=== PATIENT | female | born 1955 | race Caucasian/White ===

== ENCOUNTER → 2023-05-14 09:16 | Outpatient (REF) | payer MEDICARE, OTHER, SELFPAY ==
[2023-05-14 10:00] LABS: % Basophils 0.6 % (0-2); % Eosinophils 3.1 % (0-6); % Immature Granulocytes 0.4 % (0-0.5); % Lymphocytes 19.5 % (20.5-51.1); % Monocytes 8.9 % (1.7-9.3); % Neutrophils 67.5 % (42.2-75.2); Absolute Eosinophils 0.2 10^3/uL (0-0.7); Absolute Lymphocytes 1.3 10^3/uL (1.2-3.4); Absolute Monocytes 0.6 10^3/uL (0.1-0.6); Absolute Neutrophils 4.6 10^3/uL (1.4-6.5); Hematocrit 32.3 % (37.0-47.0); Hemoglobin 10.9 g/dL (12.0-16.0); Mean Corp Hgb Conc. 33.7 g/dL (33.0-37.0); Mean Corpuscular Hgb 29.9 pg (27.0-31.0); Mean Corpuscular Volume 88.7 fL (81.0-99.0); Mean Platelet Volume 9.9 fL (7.4-10.4); Nucleated Red Blood Cells % 0 %; Platelet Count 281 10^3/uL (130-400); Red Blood Cell Count 3.64 10^6/uL (4.20-5.40); Red Cell Dist. Width 14.1 % (11.5-14.5); White Blood Cell Count 6.8 10^3/uL (4.8-10.8)
[2023-05-14 10:22] LABS: NT-proBNP 377 pg/ml; Troponin I < 0.012 ng/ml
[2023-05-14 10:42] LABS: Protein/creatinine Ratio 3.8; Urine Protein 113 mg/dl
[2023-05-14 11:13] LABS: ALT (SGPT) 22 U/L (0-35); AST (SGOT) 22 U/L (14-36); Albumin 4.6 g/dl (3.5-5.0); Alkaline Phosphatase 110 U/L (38-126); Blood Urea Nitrogen 24 mg/dl (7-17); Calcium 9.5 mg/dl (8.4-10.2); Carbon Dioxide 23 mmol/L (22-30); Chloride 105 mmol/L (98-107); Glucose 145 mg/dl (70-99); Potassium 4.2 mmol/L (3.5-5.1); Sodium 137 mmol/L (135-145); Total Bilirubin 0.8 mg/dl (0.2-1.3); Total Protein 6.7 g/dl (6.3-8.2); eGFR > 60.00
[2023-05-18 05:42] LABS: Albumin 4.18 g/dL (3.75-5.01); Alpha 1 Globulin 0.28 g/dL (0.19-0.46); Alpha 2 Globulin 0.96 g/dL (0.48-1.05); Free Kappa Light Chains,Quant 16.61 mg/L (3.30-19.40); Free Lambda Light Chains,Quant 15.45 mg/L (5.71-26.30); IgA 61 mg/dL (68-408); IgG 477 mg/dL (768-1632); IgM 27 mg/dL (35-263); Immunofixation Electrophoresis IFE Done; Kappa/Lambda Fr Light Ratio 1.08 (0.26-1.65); Total Protein-Electrophoresis 6.6 g/dL (6.3-8.2)
== END ==
LOC: REG 09:16
PROVIDERS: ATTENDING PHYSICIAN Internal Medicine Hematology & Oncology
DX: E85.81 Light chain (AL) amyloidosis (principal)
CPT/HCPCS: 36415; 80053; 82570; 82784; 83521; 83880; 84155; 84156; 84165; 84484; 85025; 86334

== ENCOUNTER → 2023-06-26 10:11 | Outpatient (REF) | payer MEDICARE, OTHER, SELFPAY ==
[2023-06-26 11:34] LABS: Blood Urea Nitrogen 25 mg/dl (7-17); Calcium 10.1 mg/dl (8.4-10.2); Carbon Dioxide 27 mmol/L (22-30); Chloride 99 mmol/L (98-107); Glucose 164 mg/dl (70-99); HDL Cholesterol 57 mg/dl; LDL Cholesterol, Calculated 126 mg/dl; Potassium 4.6 mmol/L (3.5-5.1); Sodium 136 mmol/L (135-145); Total Cholesterol 231 mg/dl (50-199); Triglyceride 243 mg/dl (10-149); Very Low Density Lipoprotein 48 mg/dl (0-30); eGFR 55.07
[2023-06-26 12:43] LABS: Glycohemoglobin (HgbA1c) 7.3 % (4.0-5.6)
== END ==
LOC: REG 10:11
PROVIDERS: ATTENDING PHYSICIAN Internal Medicine Cardiovascular Disease; FAMILY PHYSICIAN Family Medicine
DX: E78.01 Familial hypercholesterolemia (principal); E11.9 Type 2 diabetes mellitus without complications
CPT/HCPCS: 36415; 80048; 80061; 83036

== ENCOUNTER → 2023-08-20 09:27 | Outpatient (REF) | payer MEDICARE, OTHER, SELFPAY ==
[2023-08-20 10:30] LABS: % Basophils 0.3 % (0-2); % Eosinophils 2.8 % (0-6); % Immature Granulocytes 0.3 % (0-0.5); % Lymphocytes 16.6 % (20.5-51.1); % Monocytes 7.4 % (1.7-9.3); % Neutrophils 72.6 % (42.2-75.2); Absolute Eosinophils 0.3 10^3/uL (0-0.7); Absolute Lymphocytes 1.5 10^3/uL (1.2-3.4); Absolute Monocytes 0.7 10^3/uL (0.1-0.6); Absolute Neutrophils 6.5 10^3/uL (1.4-6.5); Hematocrit 34.5 % (37.0-47.0); Hemoglobin 11.2 g/dL (12.0-16.0); Mean Corp Hgb Conc. 32.5 g/dL (33.0-37.0); Mean Corpuscular Hgb 29.4 pg (27.0-31.0); Mean Corpuscular Volume 90.6 fL (81.0-99.0); Mean Platelet Volume 10.3 fL (7.4-10.4); Nucleated Red Blood Cells % 0 %; Platelet Count 297 10^3/uL (130-400); Red Blood Cell Count 3.81 10^6/uL (4.20-5.40); Red Cell Dist. Width 13.4 % (11.5-14.5)
[2023-08-20 10:50] LABS: NT-proBNP 297 pg/ml; Troponin I < 0.012 ng/ml
[2023-08-20 11:16] LABS: ALT (SGPT) 18 U/L (0-35); AST (SGOT) 20 U/L (14-36); Albumin 4.2 g/dl (3.5-5.0); Alkaline Phosphatase 112 U/L (38-126); Blood Urea Nitrogen 25 mg/dl (7-17); Calcium 9.5 mg/dl (8.4-10.2); Carbon Dioxide 25 mmol/L (22-30); Chloride 101 mmol/L (98-107); Glucose 142 mg/dl (70-99); Potassium 4.4 mmol/L (3.5-5.1); Sodium 137 mmol/L (135-145); Total Bilirubin 0.6 mg/dl (0.2-1.3); Total Protein 6.6 g/dl (6.3-8.2); eGFR 49.61
[2023-08-20 11:18] LABS: Protein/creatinine Ratio 4.3; Urine Protein 167 mg/dl
[2023-08-22 12:51] LABS: 24 Hour Urine Total Volume Random mL; Urine Collection Length Random hr; Urine Free Lambda Light Chains 4.54 mg/L (0.00-3.79)
[2023-08-22 23:45] LABS: Albumin 3.91 g/dL (3.75-5.01); Alpha 2 Globulin 0.94 g/dL (0.48-1.05); Free Kappa Light Chains,Quant 14.04 mg/L (3.30-19.40); Free Lambda Light Chains,Quant 15.73 mg/L (5.71-26.30); IgA 72 mg/dL (68-408); IgG 531 mg/dL (768-1632); IgM 30 mg/dL (35-263); Immunofixation Electrophoresis IFE Done; Kappa/Lambda Fr Light Ratio 0.89 (0.26-1.65); Total Protein-Electrophoresis 6.3 g/dL (6.3-8.2)
== END ==
LOC: REG 09:27
PROVIDERS: ATTENDING PHYSICIAN Internal Medicine Hematology & Oncology; FAMILY PHYSICIAN Family Medicine
DX: E85.81 Light chain (AL) amyloidosis (principal)
CPT/HCPCS: 36415; 80053; 82570; 82784; 83521; 83880; 84155; 84156; 84165; 84484; 85025; 86334; 86335

== ENCOUNTER → 2023-09-11 10:07 | Outpatient (REF) | payer MEDICARE, OTHER, SELFPAY | LOC: RCS 10:07 | PROVIDERS: ATTENDING PHYSICIAN Internal Medicine Cardiovascular Disease; FAMILY PHYSICIAN Family Medicine | DX: R06.09 Other forms of dyspnea (principal) | CPT/HCPCS: 93306; 93356 ==

== ENCOUNTER → 2023-09-23 09:34 | Outpatient (REF) | payer MEDICARE, OTHER, SELFPAY ==
[2023-09-23 11:16] LABS: Blood Urea Nitrogen 40 mg/dl (7-17); Calcium 9.9 mg/dl (8.4-10.2); Carbon Dioxide 23 mmol/L (22-30); Chloride 106 mmol/L (98-107); Glucose 138 mg/dl (70-99); Potassium 4.9 mmol/L (3.5-5.1); Sodium 139 mmol/L (135-145); eGFR 49.31
== END ==
LOC: REG 09:34
PROVIDERS: ATTENDING PHYSICIAN Specialist; FAMILY PHYSICIAN Family Medicine
DX: I10 Essential (primary) hypertension (principal); R80.1 Persistent proteinuria, unspecified; E78.00 Pure hypercholesterolemia, unspecified; E78.2 Mixed hyperlipidemia
CPT/HCPCS: 36415; 80048

== ENCOUNTER → 2023-11-16 08:07 | Outpatient (REF) | payer MEDICARE, OTHER, SELFPAY ==
[2023-11-16 09:42] LABS: % Basophils 0.5 % (0-2); % Eosinophils 3.1 % (0-6); % Immature Granulocytes 0.4 % (0-0.5); % Lymphocytes 15.6 % (20.5-51.1); % Monocytes 9.1 % (1.7-9.3); % Neutrophils 71.3 % (42.2-75.2); Absolute Eosinophils 0.3 10^3/uL (0-0.7); Absolute Lymphocytes 1.3 10^3/uL (1.2-3.4); Absolute Monocytes 0.7 10^3/uL (0.1-0.6); Absolute Neutrophils 5.8 10^3/uL (1.4-6.5); Hemoglobin 11.2 g/dL (12.0-16.0); Mean Corp Hgb Conc. 33.9 g/dL (33.0-37.0); Mean Corpuscular Hgb 30.2 pg (27.0-31.0); Mean Corpuscular Volume 88.9 fL (81.0-99.0); Mean Platelet Volume 9.8 fL (7.4-10.4); Nucleated Red Blood Cells % 0 %; Platelet Count 261 10^3/uL (130-400); Red Blood Cell Count 3.71 10^6/uL (4.20-5.40); Red Cell Dist. Width 14.4 % (11.5-14.5); White Blood Cell Count 8.2 10^3/uL (4.8-10.8)
[2023-11-16 10:06] LABS: NT-proBNP 330 pg/ml; Troponin I < 0.012 ng/ml
[2023-11-16 10:18] LABS: ALT (SGPT) 18 U/L (0-35); AST (SGOT) 19 U/L (14-36); Albumin 4.4 g/dl (3.5-5.0); Alkaline Phosphatase 98 U/L (38-126); Blood Urea Nitrogen 21 mg/dl (7-17); Calcium 9.9 mg/dl (8.4-10.2); Carbon Dioxide 26 mmol/L (22-30); Chloride 99 mmol/L (98-107); Glucose 141 mg/dl (70-99); Potassium 4.9 mmol/L (3.5-5.1); Sodium 137 mmol/L (135-145); Total Protein 6.5 g/dl (6.3-8.2); eGFR 49.31
[2023-11-16 10:31] LABS: Protein/creatinine Ratio 2.7; Urine Protein 43 mg/dl
[2023-11-18 11:24] LABS: 24 Hour Urine Total Volume Random mL; Urine Collection Length Random hr; Urine Free Kappa Light Chains 3.05 mg/L (0.00-32.90)
[2023-11-18 14:27] LABS: Albumin 4.15 g/dL (3.75-5.01); Alpha 1 Globulin 0.29 g/dL (0.19-0.46); Alpha 2 Globulin 0.92 g/dL (0.48-1.05); Free Kappa Light Chains,Quant 15.39 mg/L (3.30-19.40); Free Lambda Light Chains,Quant 16.38 mg/L (5.71-26.30); IgA 72 mg/dL (68-408); IgG 499 mg/dL (768-1632); IgM 38 mg/dL (35-263); Immunofixation Electrophoresis IFE Done; Kappa/Lambda Fr Light Ratio 0.94 (0.26-1.65); Total Protein-Electrophoresis 6.5 g/dL (6.3-8.2)
== END ==
LOC: REG 08:07
PROVIDERS: ATTENDING PHYSICIAN Internal Medicine Hematology & Oncology; FAMILY PHYSICIAN Family Medicine
DX: E85.81 Light chain (AL) amyloidosis (principal)
CPT/HCPCS: 36415; 80053; 82570; 82784; 83521; 83880; 84155; 84156; 84165; 84484; 85025; 86334; 86335

== ENCOUNTER → 2023-12-25 11:34 | Outpatient (REF) | payer MEDICARE, OTHER, SELFPAY | LOC: HWRAD 11:34 | PROVIDERS: ATTENDING PHYSICIAN Nurse Practitioner Family | DX: M25.562 Pain in left knee (principal) | CPT/HCPCS: 73564 ==

== ENCOUNTER → 2024-02-08 09:09 | Outpatient (REF) | payer MEDICARE, OTHER, SELFPAY ==
[2024-02-08 10:15] LABS: % Basophils 0.4 % (0-2); % Eosinophils 2.3 % (0-6); % Immature Granulocytes 0.3 % (0-0.5); % Lymphocytes 17.3 % (20.5-51.1); % Monocytes 8.8 % (1.7-9.3); % Neutrophils 70.9 % (42.2-75.2); Absolute Eosinophils 0.2 10^3/uL (0-0.7); Absolute Lymphocytes 1.3 10^3/uL (1.2-3.4); Absolute Monocytes 0.7 10^3/uL (0.1-0.6); Absolute Neutrophils 5.2 10^3/uL (1.4-6.5); Hematocrit 32.7 % (37.0-47.0); Mean Corp Hgb Conc. 33.6 g/dL (33.0-37.0); Mean Corpuscular Hgb 30.6 pg (27.0-31.0); Mean Corpuscular Volume 91.1 fL (81.0-99.0); Nucleated Red Blood Cells % 0 %; Platelet Count 277 10^3/uL (130-400); Red Blood Cell Count 3.59 10^6/uL (4.20-5.40); Red Cell Dist. Width 13.6 % (11.5-14.5); White Blood Cell Count 7.4 10^3/uL (4.8-10.8)
[2024-02-08 10:54] LABS: NT-proBNP 364 pg/ml
[2024-02-08 11:13] LABS: Troponin I < 0.012 ng/ml
[2024-02-08 11:34] LABS: ALT (SGPT) 18 U/L (0-35); AST (SGOT) 20 U/L (14-36); Albumin 4.3 g/dl (3.5-5.0); Alkaline Phosphatase 109 U/L (38-126); Blood Urea Nitrogen 19 mg/dl (7-17); Calcium 9.7 mg/dl (8.4-10.2); Carbon Dioxide 27 mmol/L (22-30); Chloride 101 mmol/L (98-107); Glucose 144 mg/dl (70-99); HDL Cholesterol 56 mg/dl; LDL Cholesterol, Calculated 154 mg/dl; Sodium 141 mmol/L (135-145); Total Bilirubin 0.7 mg/dl (0.2-1.3); Total Cholesterol 242 mg/dl (50-199); Total Protein 6.6 g/dl (6.3-8.2); Triglyceride 162 mg/dl (10-149); Very Low Density Lipoprotein 32 mg/dl (0-30); eGFR 54.73
[2024-02-08 15:36] LABS: Protein/creatinine Ratio 3.4; Urine Protein 73 mg/dl
[2024-02-10 13:34] LABS: Albumin 4.09 g/dL (3.75-5.01); Alpha 1 Globulin 0.29 g/dL (0.19-0.46); Alpha 2 Globulin 0.86 g/dL (0.48-1.05); Free Kappa Light Chains,Quant 16.83 mg/L (3.30-19.40); Free Lambda Light Chains,Quant 14.88 mg/L (5.71-26.30); IgA 96 mg/dL (68-408); IgG 501 mg/dL (768-1632); IgM 39 mg/dL (35-263); Immunofixation Electrophoresis IFE Done; Kappa/Lambda Fr Light Ratio 1.13 (0.26-1.65); Total Protein-Electrophoresis 6.4 g/dL (6.3-8.2)
[2024-02-10 15:20] LABS: 24 Hour Urine Total Volume Random mL; Urine Collection Length Random hr; Urine Free Kappa Light Chains 6.23 mg/L (0.00-32.90); Urine Free Lambda Light Chains 1.83 mg/L (0.00-3.79)
== END ==
LOC: REG 09:09
PROVIDERS: ATTENDING PHYSICIAN Internal Medicine Cardiovascular Disease; FAMILY PHYSICIAN Family Medicine; REFERRING PHYSICIAN Internal Medicine Hematology & Oncology
DX: E85.81 Light chain (AL) amyloidosis (principal); E78.01 Familial hypercholesterolemia
CPT/HCPCS: 36415; 80053; 80061; 82570; 82784; 83521; 83880; 84155; 84156; 84165; 84484; 85025; 86334; 86335

== ENCOUNTER → 2024-04-11 09:27 | Outpatient (REF) | payer MEDICARE, OTHER, SELFPAY | LOC: RAD 09:27 | PROVIDERS: ATTENDING PHYSICIAN Internal Medicine Endocrinology, Diabetes & Metabolism | DX: E04.2 Nontoxic multinodular goiter (principal) | CPT/HCPCS: 76536 ==

== ENCOUNTER → 2024-04-22 09:21 | Outpatient (REF) | payer MEDICARE, OTHER, SELFPAY ==
[2024-04-22 10:33] LABS: Glycohemoglobin (HgbA1c) 6.8 % (4.0-5.6)
[2024-04-22 10:34] LABS: Blood Urea Nitrogen 25 mg/dl (7-17); Carbon Dioxide 29 mmol/L (22-30); Chloride 103 mmol/L (98-107); Glucose 141 mg/dl (70-99); Potassium 4.4 mmol/L (3.5-5.1); Sodium 142 mmol/L (135-145); eGFR 49.31
== END ==
LOC: REG 09:21
PROVIDERS: ATTENDING PHYSICIAN Family Medicine
DX: E11.9 Type 2 diabetes mellitus without complications (principal)
CPT/HCPCS: 36415; 80048; 83036

== ENCOUNTER 2024-05-04 16:31 | Observation (INO) | payer MEDICARE, OTHER, SELFPAY ==
[2024-05-04] VITALS (14 sets, daily range): BP systolic 118–143; BP diastolic 64–79; PULSE 80–94; BMI 28.7; BMI 28.8
[2024-05-04 11:32] LABS: % Basophils 0.4 % (0-2); % Eosinophils 0.4 % (0-6); % Immature Granulocytes 0.4 % (0-0.5); % Lymphocytes 13.3 % (20.5-51.1); % Monocytes 13.7 % (1.7-9.3); % Neutrophils 71.8 % (42.2-75.2); Absolute Lymphocytes 0.3 10^3/uL (1.2-3.4); Absolute Monocytes 0.4 10^3/uL (0.1-0.6); Absolute Neutrophils 1.8 10^3/uL (1.4-6.5); Hematocrit 33.1 % (37.0-47.0); Hemoglobin 11.1 g/dL (12.0-16.0); Mean Corp Hgb Conc. 33.5 g/dL (33.0-37.0); Mean Corpuscular Hgb 29.1 pg (27.0-31.0); Mean Corpuscular Volume 86.9 fL (81.0-99.0); Mean Platelet Volume 10.2 fL (7.4-10.4); Nucleated Red Blood Cells % 0 %; Platelet Count 195 10^3/uL (130-400); Red Blood Cell Count 3.81 10^6/uL (4.20-5.40); Red Cell Dist. Width 14.1 % (11.5-14.5); White Blood Cell Count 2.6 10^3/uL (4.8-10.8)
[2024-05-04 11:48] LABS: ALT (SGPT) 22 U/L (0-35); AST (SGOT) 31 U/L (14-36); Albumin 3.6 g/dl (3.5-5.0); Alkaline Phosphatase 86 U/L (38-126); Blood Urea Nitrogen 27 mg/dl (7-17); COVID-19 Antigen Negative (Negative); Calcium 8.1 mg/dl (8.4-10.2); Carbon Dioxide 23 mmol/L (22-30); Chloride 97 mmol/L (98-107); Glucose 195 mg/dl (70-99); Potassium 3.9 mmol/L (3.5-5.1); Sodium 129 mmol/L (135-145); Total Bilirubin 0.4 mg/dl (0.2-1.3); eGFR 40.98
[2024-05-04] MEDS: NSS 1000 IV (12:22)
--- NOTE | 2024-05-04 12:45 | ED.GENMED ---
History of Present Illness
General
Chief Complaint: Fainting/Passed Out
Time Seen by Provider: 05/04/24 11:40
History of Present Illness
History of Present Illness:
68-year-old female with history of diabetes and hypertension presenting to the emergency department after a syncopal episode. Patient reports this morning she got up from her couch to go to the bathroom. She felt that the room looked funny and
subsequently fell back onto the couch and passed out, with the bedside there with her. Notes that she was out for a few minutes. In the past few days, she has been having a cough and congestion, as well as diarrhea. She started taking
amoxicillin, thought that she may have pneumonia. Denies fever. Denies chest pain. Denies significant difficulty breathing. Does note fatigue and generalized weakness. Denies known sick contacts. Does report 1 history of syncopal episode in
the past. Denies additional acute medical complaints.
Past History
Past History
ED Past Medical History: HTN, Hypercholesterolemia, NIDDM and Other (Arthritis)
ED Past Surgical History: Appendectomy, Gynecological, Orthopedic and Tonsilectomy
Social History
Tobacco: Non-smoker
Personal:
Living: with family
Phy Exam
Physical Exam
Physical Exam:
General: Well-appearing, no clinical signs of dehydration, nontoxic and in no acute distress
HEENT: protecting airway
Neck: appears supple
CV: Normal heart rate, regular rhythm
Resp: No accessory muscle use, no increased work of breathing, lungs clear to auscultation bilaterally
Abd: Soft and non-distended, no tenderness to palpation
Extremities: No deformities, no swelling
Neuro: alert, no focal neurologic deficit
: deferred
Rectal: deferred
Psych: Normal affect
Skin: Intact
Course
Orders/Labs/Results
Orders:
Orders
05/04/24 11:05
ECG [Electrocardiogram (*1)] Urgent
Reason for Study: Syncope
EKG- Treatment ONCE
05/04/24 11:18
COVID-19 Antigen Urgent
Source: Nasal Swab
Complete Blood Count/With Diff Urgent
Comprehensive Metabolic Panel Urgent
Influenza A+B Rapid Molecular Urgent
SINDHU Source: Nasal Swab
Specimen Description:
05/04/24 12:16
Orthostatic VS- Treatment ONCE
0.9% Sodium Chloride 1000 ml [Nss] 1,000 ml IV BOLUS
05/04/24 12:17
CR Chest - 2 Views Urgent
Comment:
Reason For Exam: cough, flu
Abnormal Lab Results
05/04/24
11:18
WBC 2.6 L 10^3/uL
(4.8-10.8)
RBC 3.81 L 10^6/uL
(4.20-5.40)
Hgb 11.1 L g/dL
(12.0-16.0)
Hct 33.1 L %
(37.0-47.0)
Absolute Lymphs (auto) 0.3 L 10^3/uL
(1.2-3.4)
Lymphocytes % 13.3 L %
(20.5-51.1)
Monocytes % 13.7 H %
(1.7-9.3)
Sodium 129 L mmol/L
(135-145)
Chloride 97 L mmol/L
(98-107)
BUN 27 H mg/dl
(7-17)
Creatinine 1.4 H mg/dL
(0.6-1.0)
Glucose 195 H mg/dl
(70-99)
Calcium 8.1 L mg/dl
(8.4-10.2)
Total Protein 6.0 L g/dl
(6.3-8.2)
05/04/24 11:18
05/04/24 11:18
Vital Signs
Initial and Last Documented VS:
Initial Vital Signs
Temp Pulse Resp BP Pulse Ox
99.7 F 94 20 140/72 99
05/04/24 11:08 05/04/24 11:08 05/04/24 11:08 05/04/24 11:08 05/04/24 11:08
Last Documented Vital Signs
Temp Pulse Resp BP Pulse Ox
99.7 F 87 16 127/66 95
05/04/24 11:08 05/04/24 14:00 05/04/24 14:00 05/04/24 14:00 05/04/24 14:00
MDM/Problems Addressed
MDM/Problems Addressed:
68-year-old female with history of hypertension and diabetes presenting to the emergency department after a syncopal episode. Vital signs on arrival are normal.
On exam patient is well-appearing, no acute distress or discomfort. Unremarkable cardiac and pulmonary exam. EKG obtained on arrival, nonischemic without sign of arrhythmia. No focal neurologic deficits. In regards to syncopal episode, suspect
vasovagal quality to symptoms. Patient had a syncopal episode after going from sitting to standing position. Also notes recently cough and upper respiratory type of symptoms with decreased p.o. intake, fatigue, diarrhea. Suspect volume depletion
component. Patient screening laboratory analysis and viral swabs prior to my assessment, positive for flu which is consistent with symptoms. Additionally, patient noted to have a sodium of 129, hyponatremic, which could be contributing to
patient's symptoms. Will start patient on IV fluids. Will obtain orthostatics and chest x-ray and continue to closely monitor.
14:30 -orthostatics are within normal limits. Chest x-ray without acute evidence of pneumonia. Patient did become slightly unsteady with ambulation. In the setting of hyponatremia and syncope with known influenza, feel patient warrants admission
for continued monitoring and recheck of sodium
*EKG
Interpreted by ED Provider?: Yes
EKG Intrepretation Date: 05/04/24
EKG Intrepretation Time: 13:06
Interpretation: normal
Comparison EKG: no comparison EKG present
Heart Rate: 92
Rate: normal
Rhythm: sinus
[place]: left axis deviation
Interval: normal interval
QRS Pattern: normal QRS
Ischemia: no ischemia
*Critical Care Note
Total Time (30-74mins, 75-104mins- exclusive of procedures): Not Applicable
ED Attending Note
-
Portions of this chart may have been created with voice recognition software.� Occasional wrong word or��sound alike� substitutions may have occurred due to the inherent limitations of voice recognition software.
Discharge Plan
Departure
Prescriptions:
No Action
metformin 500 MG tablet
1,000 mg PO DAILY
fexofenadine [Lona Allergy] 180 MG tablet
180 mg PO DAILY
ferrous sulfate [iron] 325 MG tablet
325 mg PO BID
lisinopril 30 MG tablet
40 mg PO DAILY
fluticasone propionate 1 SPRAY spray,suspension
2 spray intranasal DAILY
cholecalciferol (vitamin D3) 1,000 UNIT capsule
1,000 unit PO BID
cinnamon bark 500 MG capsule
1,000 mg PO BID
omega-3 acid ethyl esters [Lovaza] 1 GM capsule
2 gm PO BID
Mucinex 1,200 MG tablet extended release 12hr
1,200 mg PO BID
omeprazole 20 MG tablet,delayed release (DR/EC)
20 mg PO DAILY
Magnesium
1 tab PO DAILY
loperamide [Imodium A-D] 2 mg Tablet
2 mg PO DAILY
amlodipine 5 mg Tablet
5 mg PO DAILY
penciclovir [Denavir] 1 % Cream
1 applic TOPICAL Q2H
lidocaine 5 % Adhesive Patch,Medicated
1 patch TOPICAL DAILY PRN (Reason: pain)
lactase [Lactaid] 3,000 unit Tablet
3,000 unit PO ONCE
furosemide [Lasix] 20 mg Tablet
20 mg PO DAILY PRN (Reason: leg swelling)
apple cider vinegar 500 mg Tablet
1,000 mg PO DAILY
Benefiber (wheat dextrin) 1 gram Tablet
1 g PO DAILY PRN (Reason: as)
allopurinol 200 mg Tablet
200 mg PO DAILY
valacyclovir [Valtrex] 1 gram Tablet
2,000 mg PO Q12H
oxycodone 5 mg Tablet
5 mg PO Q4H PRN (Reason: pain)
Praluent Pen 150 mg/mL Pen Injector
150 mg SC Q14D
Referrals:
Zelda Chowdhury DO [Family Provider] -
Interventions
Interventions:
*Risk Screen - Suicide Last Done: 05/04/24 11:08
*General Assessment Last Done: 05/04/24 11:26
*Neglect/Abuse Screening Last Done: 05/04/24 11:26
ED- Fall Risk Assessment Last Done: 05/04/24 11:26
ED- Cardiac Assessment Last Done: 05/04/24 11:26
ED- Neurological Assessment Last Done: 05/04/24 11:26
Discharge Date and Time
Print Language: SOU[place] KORE[place]
--- NOTE | 2024-05-04 14:37 | HPS.HSE ---
Family Physician
-
Family Physician: Zelda Chowdhury
Chief Complaint
-
syncope
History of Present Illness
Patient is a 68-year-old female with past medical history significant for hypertension, hypercholesterolemia, CKD III, amyloidosis and multiple myeloma in remission who presented to [facility] ED for evaluation of not feeling well with
subjective fevers, chills, nonproductive cough and diarrhea for 3 days. Patient stated today she was not feeling right and decided to sit on couch, she eventually felt like she needed to go to the bathroom and she remembers standing up, the room
looking blurry and then nothing after that until she woke on couch. Patient states patient spouse reports she passed out and fell back on to couch before coming too a few moments later. Patient denies any dizziness, chest pain, nausea, vomiting, or
urinary symptoms.
Medical History
Past Medical History
Past Medical History: Reports Other
Additional Past Medical History:
hypertension
hypercholesterolemia
CKD III
diabetes
amyloidosis
multiple myeloma in remission
Past Surgical History: Reports Other
Additional Past Surgical History:
bilateral inguinal hernia
hysterectomy
tonsillectomy
carpal tunnel repair
neuroma left foot
trigger finger
renal biopsy
colonoscopy
abdominal fat pad biopsy
thyroid nodule biopsy
bone marrow biopsy
Social History
Tobacco: Non-smoker
Alcohol: Occasional
Drug: Marijuana (edibles for neuropathy pain)
Personal:
Living: With Family
Family History
Family History: Not pertinent
Allergies / Home Medications
Allergies reflects when Allergies were last updated in [facility].
Home Medications with original date entered in [facility]
Allergy/Medication List:
Allergies
Allergy/AdvReac Type Severity Reaction Status Date / Time
dapagliflozin [From Farxiga] Allergy dizzy, off Verified 05/04/24 11:09
balance
Xauuihc-PNA-CxE Reductase Allergy Unknown Verified 05/04/24 11:09
Inhibitor
[Gytsloy-Sgv-Rrb Reductase
Inhibitor]
Home Medications
cinnamon bark 500 mg capsule 1,000 mg PO BID 07/14/14
fexofenadine 180 mg tablet (Lona Allergy) 180 mg PO DAILY 07/14/14
fluticasone propionate 50 mcg/actuation nasal spray,suspension 2 spray intranasal DAILY 07/14/14
guaifenesin 1,200 mg tablet, extended release 12 hr (Mucinex) 1,200 mg PO BIDPRN PRN cold/cough 07/14/14
magnesium 200 mg tablet 200 mg PO DAILY 07/14/14
omeprazole 20 mg tablet,delayed release 20 mg PO DAILY 07/14/14
alirocumab 150 mg/mL subcutaneous pen injector (Praluent Pen) 150 mg SC Q14D 05/21/22
allopurinol 200 mg tablet 200 mg PO DAILY 05/21/22
amlodipine 5 mg tablet 5 mg PO DAILY taken w/ 2.5mg= 7.5mg 05/21/22
lactase 3,000 unit tablet (Lactaid) 3,000 unit PO MEALS PRN lactose 05/21/22
loperamide 2 mg tablet (Imodium A-D) 2 mg PO Q4HPRN PRN loose stool 05/21/22
wheat dextrin 1 gram tablet 1 g PO DAILYPRN PRN constipation 05/21/22
amlodipine 2.5 mg tablet 2.5 mg PO DAILY taken w/5mg = 7.5mg 05/04/24
amoxicillin 875 mg tablet 875 mg PO BID 05/04/24
benzonatate 200 mg capsule 200 mg PO Q8HPRN PRN cough 05/04/24
cholecalciferol (vitamin D3) 50 mcg (2,000 unit) tablet 50 mcg PO DAILY 05/04/24
diphenhydramine HCl 25 mg capsule (Benadryl) 25 mg PO HSPRN PRN sleep 05/04/24
hydrochlorothiazide 12.5 mg tablet 12.5 mg PO DAILY 05/04/24
lisinopril 40 mg tablet 40 mg PO DAILY 05/04/24
metformin 500 mg tablet,extended release 24 hr 1,000 mg PO DAILY 05/04/24
sour chiu extract 1,000 mg capsule (Tart Chiu Extract) 1,000 mg PO QPM 05/04/24
Review of Systems
-
History Source: Patient
Constitutional: Reports Fever, Night Sweats and Chills
EENT: Reports No Symptoms
Respiratory: Reports Cough (nonproductive )
Cardiac: Reports No Symptoms
Abdomen/GI: Reports Diarrhea
: Reports No Symptoms
Musculoskeletal: Reports No Symptoms
Skin: Reports No Symptoms
Neurological: Reports No Symptoms
Endocrine: Reports No Symptoms
Hematologic/Lymphatic: Reports No Symptoms
Psych: Reports No Symptoms
Physical Exam
Vital Signs
Vital Signs
Temp Pulse Resp BP Pulse Ox
99.7 F 87 16 127/66 95
05/04/24 11:08 05/04/24 14:00 05/04/24 14:00 05/04/24 14:00 05/04/24 14:00
Physical Exam
General: Well Developed, Well Nourished, No Apparent Distress, Comfortable, Conversant and Obese
HEENT: NormoCephalic, Moist mucous membranes, Atraumatic, [place] Conjunctivae, Nose Appears Normal and Ears Appear Normal
Respiratory: Clear and Non Labored Respirations
Cardiac: S1/S2 and Regular Rhythm; No Murmur, Rub or Gallop
Breast: Deferred by me
GI: Soft, Non Tender, Non Distended and Normal Bowel Sounds; No Organomegaly
Rectal: Deferred by Provider
Genito-urinary: Deferred by me
Musculoskeletal: No Clubbing, No Cyanosis and No Edema
Skin: Warm and IV/Catheter Site; No Rash
Neuro: Awake, Alert, AO x 3 and Nonfocal/grossly intact
Psych: Calm and Intact Judgment/Insight
Laboratory Results
-
05/04/24 11:18
05/04/24 11:18
Laboratory Results
Total Bilirubin 0.4 mg/dl (0.2-1.3) 05/04/24 11:18
AST 31 U/L (14-36) 05/04/24 11:18
ALT 22 U/L (0-35) 05/04/24 11:18
Alkaline Phosphatase 86 U/L (38-126) 05/04/24 11:18
Data Reviewed
-
Diagnostic Radiology: Report Reviewed by me (CXR: Minor left mid to lower lung discoid atelectasis.)
Medical Tests (Nuc Med, Echo, EKG etc): Report Reviewed by me (EKG: NORMAL SINUS RHYTHM LEFT AXIS DEVIATION LOW VOLTAGE QRS SEPTAL INFARCT , AGE UNDETERMINED)
Lab Data: Labs Reviewed by me (Na+ 129, BUN 2, Creat 1.4, Influenza A positive, )
Impression/Plan
-
IMPRESSION/PLAN:
#syncopal episode
patient with 3 days of nonproductive cough, chills and diarrhea
Influenza A: positive
Covid: negative
Na+ 129
- Admit to telemetry
- Tamiflu
- supportive care
- monitor BMP
#hyponatremia
Na+ 129
- IVF bolus
- monitor BMP
#hypertension
- orthostatic VS
- continue amlodipine, hydrochlorothiazide, and lisinopril
#hypercholesterolemia
- continue Alirocumab at home
#diabetes
Hgb A1C (04/22/2024) 6.8
- hold metformin
- AccuCheck AC & HS
- SSI
#ELIZABETH
#CKD III
BUN 27, Creat 1.4
- IVF bolus
- monitor BMP
#amyloidosis
#multiple myeloma in remission
finished chemo July 2023
Code status: Full code
DVT prophylaxis: heparin sq
--- NOTE | 2024-05-04 15:26 | W.PN.UPDATE ---
Addendum entered and electronically signed by Enriqueta Serrano MD 05/04/24 18:02:
Check stool studies for diarrhea.
Original Note:
Update Note
Progress Note Update
This is an addendum to the H&P written by Suha Chowdhury on 05/04/2024.� Patient seen and examined independently with DEHYDRATOR OPERATOR.
68-year-old female past medical history of amyloidosis, multiple myeloma, diabetes, hypertension, hypercholesteremia, CKD 3, presenting with syncopal episode.� Also with cough and congestion and diarrhea for past few days with fatigue and weakness.�
Started taking amoxicillin.� No fever.
Vital signs normal.
Labs show leukopenia.� Stable CKD and anemia.
Chest x-ray shows minor left mid to lower lung discoid atelectasis.
Influenza A positive.
Patient with syncopal episode in the setting of influenza A infection.�Hold metformin, HCTZ. IV fluids given.� Start Tamiflu.� PT/OT.
--- NOTE | 2024-05-04 18:01 | PTCARENOTE ---
Pt recvd to the floor from ED> vitals obtained and pt has temp of 102.4, no stool test done for loose bowels for 3 days. She continues to have diarrhea. Sent TT to MD for order.
[2024-05-04] MEDS: TYLENOL 650 MG PO (18:22)
[2024-05-04] MEDS: TAMIFLU 30 MG PO (20:45)
[2024-05-04] MEDS: ANESTHETIC LOZENGE 1 LOZENGE PO (23:03)
[2024-05-04] MEDS: IMODIUM 2 MG PO (23:03)
[2024-05-05] MEDS: MUCINEX 1200 MG PO (01:35)
[2024-05-05 01:39] LABS: Glucose - Point of Care 108 mg/dl (70-99)
[2024-05-05 03:27] VITALS: BP 134/82
[2024-05-05 07:26] LABS: Blood Urea Nitrogen 22 mg/dl (7-17); Calcium 8.1 mg/dl (8.4-10.2); Carbon Dioxide 21 mmol/L (22-30); Chloride 100 mmol/L (98-107); Estimated Creatinine Clearance 48 ml/min; Glucose 104 mg/dl (70-99); Sodium 131 mmol/L (135-145); eGFR 49.31
[2024-05-05 07:29] VITALS: BP 148/67
[2024-05-05 08:12] LABS: Hematocrit 31.4 % (37.0-47.0); Hemoglobin 10.6 g/dL (12.0-16.0); Mean Corp Hgb Conc. 33.8 g/dL (33.0-37.0); Mean Corpuscular Hgb 28.8 pg (27.0-31.0); Mean Corpuscular Volume 85.3 fL (81.0-99.0); Mean Platelet Volume 9.6 fL (7.4-10.4); Platelet Count 174 10^3/uL (130-400); Red Blood Cell Count 3.68 10^6/uL (4.20-5.40); White Blood Cell Count 1.8 10^3/uL (4.8-10.8)
[2024-05-05] MEDS: PROTONIX 40 MG PO (10:02)
[2024-05-05] MEDS: ZYLOPRIM 200 MG PO (10:02)
[2024-05-05] MEDS: TAMIFLU 30 MG PO (10:02)
[2024-05-05] MEDS: MAG-TAB SR 84 MG PO (10:03)
[2024-05-05] MEDS: CLARITIN 10 MG PO (10:03)
[2024-05-05] MEDS: ANESTHETIC LOZENGE 1 LOZENGE PO (10:22)
[2024-05-05] MEDS: VITAMIN D3 (cholecalciferol) 50 MCG PO (10:22)
[2024-05-05 10:26] LABS: Glucose - Point of Care 106 mg/dl (70-99)
[2024-05-05 11:11] VITALS: BP 138/74; BP 142/87; BP 146/81; PULSE 92; PULSE 94; PULSE 95
--- NOTE | 2024-05-05 11:33 | W.PN.HOSP.TC ---
Today's Communication/Plan
-
Monitor for p.o. tolerance
Monitor blood pressure
Physical therapy evaluation
Continue with Tamiflu
DC antibiotics
Possible discharge later today
Assessment / Plan
Assessment / Plan
#syncopal episode
#hyponatremia
#hypertension
#hypercholesterolemia
#diabetes Hgb A1C (04/22/2024) 6.8
#Elevated creatine with CKDIII a vs. b
#amyloidosis
#multiple myeloma in remission
# Leukopenia likely secondary to influenza
Plan
Patient syncopal episode likely secondary to orthostatic secondary to dehydration in the setting of influenza
Patient orthostatic negative here this morning
Patient blood pressure stable without any episode of hypotension
Patient received IV fluids and can further.
Patient tolerating p.o. diet
Can restart blood pressure medication
Can hold HCTZ for couple days
Follows with nephrology and patient with history of elevated creatinine. Follows up with Dr. Griffin
Patient today walking in the room without any difficulty.
Telemetry with no arrhythmias noted
Patient states eager to go home
Patient sodium up trended. Creatinine down trended to baseline.
Code status: Full code
DVT prophylaxis: heparin sq
Anticipated Discharge: Today
Subjective/Interval History
-
Date of Service: May 05, 2024
Denies any lightheadedness, dizziness, chest pain, palpitation, nausea or vomiting
States of episodes of diarrhea at home
States she stood up felt lightheaded diaphoretic yesterday prior to arrival
No urinary or fecal incontinence
No chest pain or palpitation prior to the event
Objective Data
-
Labs:
Laboratory Results
05/05/24
06:27
WBC 1.8 L*
Hgb 10.6 L
Hct 31.4 L
Plt Count 174
Sodium 131 L
Potassium 4.0
Chloride 100
Carbon Dioxide 21 L
BUN 22 H
Creatinine 1.2 H
Glucose 104 H
Calcium 8.1 L
Vital Signs:
Vital Signs
Temp Pulse Resp BP Pulse Ox
99.3 F 95 18 148/67 99
05/05/24 11:12 05/05/24 11:12 05/05/24 11:12 05/05/24 07:29 05/05/24 11:12
I&O
05/04/24 05/05/24 05/06/24
06:59 06:59 06:59
Intake Total 480 / 480
Balance 480 / 480
Physical Exam
-
General: Well Developed and No Apparent Distress
HEENT: Normocephalic, Atraumatic and Moist Mucous Membranes
Respiratory: Clear to Auscultation
Cardiac: Regular Rhythm and S1/S2; Negative Murmur, Rub or Gallop
GI: Soft, Nontender, Nondistended and Normal Bowel Sounds; Negative Organomegaly
Rectal: Deferred by Provider
Musculoskeletal: No Clubbing, No Cyanosis and No Edema
Skin: Negative Rash
Neuro: Awake, Alert, Oriented, AO x 3, No Motor Deficits and Nonfocal/Grossly Intact
Psych: Calm
[2024-05-05 12:14] VITALS: BP 137/78; PULSE 97; O2SAT 97
--- NOTE | 2024-05-05 12:19 | PTOTSP ---
Patient independent with all bed mobility, transfers, and ambulation. No skilled PT needs, will sign off.
[2024-05-05 12:24] VITALS: BP 138/74
[2024-05-05 12:54] LABS: Glucose - Point of Care 193 mg/dl (70-99)
[2024-05-05] MEDS: ZESTRIL 40 MG PO (12:55)
--- NOTE | 2024-05-05 14:25 | W.DCSUMMARY ---
Discharge Summary
Discharge Data
Date of Admission: 05/04/24
Date of Discharge: 05/05/24
-
Pending Results: No
Hospital Course
60-year-old female past medical history of hypertension, CKD, amyloidosis, multiple myeloma,, hyperlipidemia who is presenting from home with syncopal episode. Patient at home was been complaining of weakness, cough and diarrhea. Patient started
taking antibiotics at home. Patient stood up from the sofa and felt lightheaded and was able to put patient down. Patient woke up without any difficulty. Patient was diaphoretic prior to the fall. Patient did not have any chest pain or
shortness of breath or palpitation prior to the event. No urinary or fecal incontinence. Denies tongue biting. Patient was admitted to hospital. Patient was found to have influenza A positive. Patient was and Tamiflu. Patient received IV fluid
resuscitation. Orthostatic were found to be negative. Patient was feeling significantly better. Patient was tolerating oral intake without any nausea or vomiting. Patient was ambulating without any difficulty. Patient denies lightheadedness or
dizziness. Patient with mild leukopenia which was deemed secondary to influenza. Patient was eager to get discharged. Patient was eval by physical therapy and okay to ambulate without any restrictions. Patient was recommended to get repeat
blood work done as outpatient to monitor creatinine, sodium and WBC count. Patient remained afebrile. Patient be discharged on Tamiflu.
Discharge Plan
-
Patient Disposition: Home (Routine Discharge)
Discharge Diagnosis/Procedures: syncope secondary to vasovagal
Influenza
Dehydration
Condition: Fair
Diet: As tolerated
Activity: With assistance
Driving Restrictions: As prior to admission
Blood Work: cbc and bmp in 1 week via primary doctor.
Referrals:
Zelda Chowdhury, DO [Family Provider] - in less than 1 week
Prescriptions:
New
oseltamivir 30 mg Capsule
30 mg PO BID 4 Days Qty: 8 0RF
Continued
fexofenadine [Lona Allergy] 180 MG tablet
180 mg PO DAILY
fluticasone propionate 1 SPRAY spray,suspension
2 spray intranasal DAILY
magnesium 200 mg Tablet
200 mg PO DAILY
cinnamon bark 500 MG capsule
1,000 mg PO BID
guaifenesin [Mucinex] 1,200 MG tablet extended release 12hr
1,200 mg PO BIDPRN PRN (Reason: cold/cough)
omeprazole 20 MG tablet,delayed release (DR/EC)
20 mg PO DAILY
loperamide [Imodium A-D] 2 mg Tablet
2 mg PO Q4HPRN PRN (Reason: loose stool)
amlodipine 5 mg Tablet
5 mg PO DAILY
lactase [Lactaid] 3,000 unit Tablet
3,000 unit PO MEALS PRN (Reason: lactose)
wheat dextrin 1 gram Tablet
1 g PO DAILYPRN PRN (Reason: constipation)
allopurinol 200 mg Tablet
200 mg PO DAILY
Praluent Pen 150 mg/mL Pen Injector
150 mg SC Q14D
benzonatate 200 mg capsule
200 mg PO Q8HPRN PRN (Reason: cough)
amlodipine 2.5 mg tablet
2.5 mg PO DAILY
diphenhydramine HCl [Benadryl] 25 mg Capsule
25 mg PO HSPRN PRN (Reason: sleep)
lisinopril 40 mg tablet
40 mg PO DAILY
metformin 500 mg tablet extended release 24 hr
1,000 mg PO DAILY
cholecalciferol (vitamin D3) 50 mcg (2,000 unit) Tablet
50 mcg PO DAILY
Tart Chiu Extract 1,000 mg Capsule
1,000 mg PO QPM
Held
hydrochlorothiazide 12.5 mg tablet
12.5 mg PO DAILY
Hold Instructions: Resume on 05/07/24.
Discontinued
amoxicillin 875 mg tablet
875 mg PO BID
Discharge Orders:
Discharge Patient (As Directed); Ordered 05/05/24
Ordered By: Benton Grajeda
Discharge Date and Time
Print Language: CHINESE
[2024-05-05 15:47] VITALS: BP 126/65
== END 2024-05-05 15:49 | disposition home or self-care (01) ==
LOC: 4 EAST ACU 16:31
PROVIDERS: Nurse Practitioner Family; Student in an Organized Health Care Education/Training Program; ADMITTING PHYSICIAN Hospitalist; ATTENDING PHYSICIAN Hospitalist; EMERGENCY PHYSICIAN Student in an Organized Health Care Education/Training Program; FAMILY PHYSICIAN Family Medicine
DX: J10.1 Influenza due to other identified influenza virus with other respiratory manifestations (principal); R55 Syncope and collapse; R19.7 Diarrhea, unspecified; R09.81 Nasal congestion; R05.9 Cough, unspecified; R94.31 Abnormal electrocardiogram [ECG] [EKG]; D72.819 Decreased white blood cell count, unspecified; E86.0 Dehydration; I12.9 Hypertensive chronic kidney disease with stage 1 through stage 4 chronic kidney disease, or unspecified chronic kidney disease; E11.22 Type 2 diabetes mellitus with diabetic chronic kidney disease; R53.83 Other fatigue; N17.9 Acute kidney failure, unspecified; E85.9 Amyloidosis, unspecified; R53.1 Weakness; J98.11 Atelectasis; E78.00 Pure hypercholesterolemia, unspecified; M19.90 Unspecified osteoarthritis, unspecified site; E87.1 Hypo-osmolality and hyponatremia; N18.30 Chronic kidney disease, stage 3 unspecified; C90.01 Multiple myeloma in remission; Z88.8 Allergy status to other drugs, medicaments and biological substances; Z79.899 Other long term (current) drug therapy; Z79.84 Long term (current) use of oral hypoglycemic drugs; Z90.49 Acquired absence of other specified parts of digestive tract; Z11.52 Encounter for screening for COVID-19
CPT/HCPCS: 71046; 80048; 80053; 82962; 85025; 85027; 87045; 87046; 87427; 87502; 87798; 87811; 93005; 96360; 97116; 97161; 99285; G0378

== ENCOUNTER → 2024-05-16 07:43 | Outpatient (REF) | payer MEDICARE, OTHER, SELFPAY ==
[2024-05-16 08:40] LABS: % Basophils 0.3 % (0-2); % Eosinophils 1.1 % (0-6); % Immature Granulocytes 0.6 % (0-0.5); % Lymphocytes 10.5 % (20.5-51.1); % Neutrophils 80.5 % (42.2-75.2); Absolute Eosinophils 0.1 10^3/uL (0-0.7); Absolute Immature Granulocytes 0.1 10^3/uL (0-0.05); Absolute Lymphocytes 1.2 10^3/uL (1.2-3.4); Absolute Monocytes 0.8 10^3/uL (0.1-0.6); Absolute Neutrophils 9.4 10^3/uL (1.4-6.5); Hematocrit 31.3 % (37.0-47.0); Hemoglobin 10.3 g/dL (12.0-16.0); Mean Corp Hgb Conc. 32.9 g/dL (33.0-37.0); Mean Corpuscular Hgb 28.9 pg (27.0-31.0); Mean Corpuscular Volume 87.9 fL (81.0-99.0); Mean Platelet Volume 9.2 fL (7.4-10.4); Nucleated Red Blood Cells % 0 %; Platelet Count 382 10^3/uL (130-400); Red Blood Cell Count 3.56 10^6/uL (4.20-5.40); Red Cell Dist. Width 14.5 % (11.5-14.5); White Blood Cell Count 11.7 10^3/uL (4.8-10.8)
[2024-05-16 08:51] LABS: NT-proBNP 694 pg/ml; Troponin I 0.015 ng/ml
[2024-05-16 09:19] LABS: ALT (SGPT) 24 U/L (0-35); AST (SGOT) 17 U/L (14-36); Albumin 3.9 g/dl (3.5-5.0); Alkaline Phosphatase 111 U/L (38-126); Blood Urea Nitrogen 19 mg/dl (7-17); Calcium 9.3 mg/dl (8.4-10.2); Carbon Dioxide 23 mmol/L (22-30); Chloride 104 mmol/L (98-107); Glucose 138 mg/dl (70-99); HDL Cholesterol 52 mg/dl; LDL Cholesterol, Calculated 101 mg/dl; Potassium 4.3 mmol/L (3.5-5.1); Sodium 137 mmol/L (135-145); Total Bilirubin 1.1 mg/dl (0.2-1.3); Total Cholesterol 212 mg/dl (50-199); Total Protein 6.3 g/dl (6.3-8.2); Triglyceride 296 mg/dl (10-149); Very Low Density Lipoprotein 59 mg/dl (0-30); eGFR 54.73
[2024-05-16 09:28] LABS: Protein/creatinine Ratio 3.1; Urine Protein 142 mg/dl
[2024-05-16 09:31] LABS: LDL Cholesterol, Direct 83 mg/dl
[2024-05-18 14:27] LABS: Albumin 3.52 g/dL (3.75-5.01); Free Kappa Light Chains,Quant 29.88 mg/L (3.30-19.40); Free Lambda Light Chains,Quant 19.98 mg/L (5.71-26.30); IgA 172 mg/dL (68-408); IgG 672 mg/dL (768-1632); IgM 82 mg/dL (35-263); Immunofixation Electrophoresis IFE Done; Total Protein-Electrophoresis 6.2 g/dL (6.3-8.2)
== END ==
LOC: REG 07:43
PROVIDERS: ATTENDING PHYSICIAN Internal Medicine Cardiovascular Disease; FAMILY PHYSICIAN Family Medicine; OTHER PHYSICIAN Internal Medicine Hematology & Oncology
DX: E78.01 Familial hypercholesterolemia (principal); E85.81 Light chain (AL) amyloidosis
CPT/HCPCS: 36415; 80053; 80061; 82570; 82784; 83521; 83721; 83880; 84155; 84156; 84165; 84484; 85025; 86334

== ENCOUNTER → 2024-08-19 08:39 | Outpatient (REF) | payer MEDICARE, OTHER, SELFPAY ==
[2024-08-19 09:21] LABS: % Basophils 0.6 % (0-2); % Eosinophils 3.2 % (0-6); % Immature Granulocytes 0.3 % (0-0.5); % Lymphocytes 17.2 % (20.5-51.1); % Monocytes 8.3 % (1.7-9.3); % Neutrophils 70.4 % (42.2-75.2); Absolute Eosinophils 0.2 10^3/uL (0-0.7); Absolute Lymphocytes 1.3 10^3/uL (1.2-3.4); Absolute Monocytes 0.6 10^3/uL (0.1-0.6); Absolute Neutrophils 5.1 10^3/uL (1.4-6.5); Hematocrit 33.4 % (37.0-47.0); Hemoglobin 10.8 g/dL (12.0-16.0); Mean Corp Hgb Conc. 32.3 g/dL (33.0-37.0); Mean Corpuscular Hgb 29.4 pg (27.0-31.0); Nucleated Red Blood Cells % 0 %; Platelet Count 280 10^3/uL (130-400); Red Blood Cell Count 3.67 10^6/uL (4.20-5.40); Red Cell Dist. Width 14.4 % (11.5-14.5); White Blood Cell Count 7.3 10^3/uL (4.8-10.8)
[2024-08-19 09:46] LABS: NT-proBNP 448 pg/ml; Troponin I < 0.012 ng/ml
[2024-08-19 09:47] LABS: Protein/creatinine Ratio 5.5; Urine Protein 114 mg/dl
[2024-08-19 09:49] LABS: ALT (SGPT) 17 U/L (0-35); AST (SGOT) 20 U/L (14-36); Albumin 4.2 g/dl (3.5-5.0); Alkaline Phosphatase 93 U/L (38-126); Blood Urea Nitrogen 27 mg/dl (7-17); Calcium 9.7 mg/dl (8.4-10.2); Carbon Dioxide 28 mmol/L (22-30); Chloride 107 mmol/L (98-107); Glucose 146 mg/dl (70-99); Potassium 4.6 mmol/L (3.5-5.1); Sodium 142 mmol/L (135-145); Total Bilirubin 0.8 mg/dl (0.2-1.3); eGFR 54.73
== END ==
LOC: REG 08:39
PROVIDERS: ATTENDING PHYSICIAN Internal Medicine Hematology & Oncology; FAMILY PHYSICIAN Family Medicine
DX: E85.81 Light chain (AL) amyloidosis (principal)
CPT/HCPCS: 36415; 80053; 82570; 82784; 83521; 83880; 84155; 84156; 84165; 84484; 85025; 86334

== ENCOUNTER → 2024-08-24 07:17 | Outpatient (REF) | payer MEDICARE, OTHER, SELFPAY | LOC: RCS 07:17 | PROVIDERS: ATTENDING PHYSICIAN Internal Medicine Cardiovascular Disease; FAMILY PHYSICIAN Family Medicine | DX: E85.81 Light chain (AL) amyloidosis (principal); R06.09 Other forms of dyspnea | CPT/HCPCS: 93306; 93356 ==

== ENCOUNTER 2024-09-02 01:02 | Emergency (ER) | payer MEDICARE, OTHER, SELFPAY ==
[2024-09-02 01:07] VITALS: BP 181/104
--- NOTE | 2024-09-02 02:24 | ED.GENMED ---
History of Present Illness
General
Chief Complaint: Overdose Unintentional
Source: patient and spouse
Time Seen by Provider: 09/02/24 02:06
Nursing documentation reviewed up to this point in time: agreed with
History of Present Illness
History of Present Illness:
Note:
CHIEF COMPLAINT(S)
Concern for accidental acetaminophen poisoning.
HISTORY OF PRESENT ILLNESS
The patient is a 68-year-old female who presents to the emergency department with concern for potential acetaminophen poisoning. She reports that at approximately 9 p.m. the previous evening, she took two extra strength acetaminophen (Tylenol).
While on a phone call with a friend later on, she inadvertently ingested an additional two doses of 650 mg acetaminophen. She has expressed concern about accidental acetaminophen poisoning but denies any current complaints or symptoms. The patient
does not consume alcohol and has not taken any acetaminophen within the previous 24-hour period other than this incident.
PHYSICAL EXAM
- The patient is awake, alert, and oriented to person, place, and time, showing no signs of acute distress.
- Cardiovascular: Heart presents with regular rate and rhythm.
- Musculoskeletal: The patient is able to move all four extremities.
- Integumentary: Skin is warm and dry.
- Neurological: The patient is oriented to person, place, and time with a normal affect.
- Abdomen: The abdomen is soft, non-tender, and non-distended.
Nursing notes reviewed and vital signs reviewed.
PLAN
Evaluate for signs of acetaminophen toxicity and consider obtaining acetaminophen levels to determine potential toxicity. Encourage monitoring of liver function due to potential overdose, and consider treatment with N-acetylcysteine if indicated by
laboratory results.
DIFFERENTIAL DIAGNOSIS
The Differential Diagnosis includes, in no particular order and is not limited to:
1. Acetaminophen toxicity
2. Liver injury
3. Gastrointestinal distress
4. Metabolic acidosis
5. Renal impairment
6. Hypoglycemia
7. Drug interactions
8. Overdose syndromes
9. Anxiety-related symptoms
10. Hypersensitivity reactions
Disposition:
SUMMARY OF ENCOUNTER
The patient, a 68-year-old female, presented to the emergency department with concern for potential acetaminophen overdose after inadvertently ingesting a total of four extra strength acetaminophen caplets (650 mg each) over approximately three
hours. She experienced no symptoms but was worried about overdose risks. Upon evaluation, she was found to be stable and in no acute distress. The decision was made to monitor for potential toxicity symptoms without undertaking any laboratory
testing, as the patient declined lab work.
DISPOSITION
Patient was discharged with instructions, and her condition had improved upon discharge.
PLAN
The plan involved monitoring for signs of acetaminophen toxicity and avoiding acetaminophen consumption for the next 24 hours. The patient was instructed to abstain from alcohol consumption as a precautionary measure and reassured accordingly.
PATIENT EDUCATION AND COUNSELING
The patient was educated on the importance of monitoring for symptoms of acetaminophen toxicity and avoiding further acetaminophen use in the immediate period to prevent potential overdose complications. She was counseled on avoiding alcohol
consumption and given instructions for any follow-up if symptoms arise.
MEDICATION RECONCILIATION
The patient took four extra strength acetaminophen caplets at 650 mg each.
MEDICAL DECISION MAKING
Number and Complexity of Problems Addressed: The patients primary concern was accidental acetaminophen ingestion without symptoms. The complexity arose from the potential toxicity risk, even though she was asymptomatic.
Risk: Consideration for potential hospitalization due to overdose risk was contemplated. Prescription drug management was assessed regarding the recent acetaminophen intake. The patients request to avoid lab testing was respected.
Past History
Past History
ED Past Medical History: HTN, Hypercholesterolemia, NIDDM and Other (Arthritis)
ED Past Surgical History: Appendectomy, Gynecological, Orthopedic and Tonsilectomy
Social History
Tobacco: Non-smoker
Personal:
Living: with family
Review of Systems
Review of Systems
Allergies reviewed?: Yes
Other source history: family
All Other Systems: ROS reviewed and negative except as documented in HPI and ROS
Phy Exam
General Physical Exam
General Presentation: well appearing and no apparent distress
General Skin: warm and dry
General Habitus: normal
General Mental: alert
General Hydration: appears well hydrated
ENT Exam
ENT Exam: EOMI, pharynx normal, neck supple and normocephalic
Eye Exam
Eye Exam: PERRL, cornea clear and conjunctiva normal
Cardiovascular Exam
Cardiovascular Exam: regular rate/rhythm, no edema, no murmur and normal peripheral pulses
Pulmonary Exam
Pulmonary Exam: lungs clear, no respiratory distress, no rales, no crackles, no rhonchi, no stridor, no wheezing and no cough
Gastrointestinal Exam
Gastrointestinal Exam: normal bowel sounds, non tender, soft, no organomegaly, no pulsatile mass and non distended
Neurological Exam
Neurological Exam: alert, oriented x3, no motor deficits and speech normal
Musculoskeletal Exam
Musculoskeletal Exam: full ROM and no edema
Skin Exam
Skin Exam: normal color, warm/dry, no rash and no petechia
Psychiatric Exam
Psychiatric Exam: normal mood/affect
Course
Vital Signs
Initial and Last Documented VS:
Initial Vital Signs
Temp Pulse Resp BP Pulse Ox
98.1 F 108 22 181/104 100
09/02/24 01:07 09/02/24 01:07 09/02/24 01:07 09/02/24 01:07 09/02/24 01:07
Last Documented Vital Signs
Temp Pulse Resp BP Pulse Ox
98.1 F 108 22 181/104 100
09/02/24 01:07 09/02/24 01:07 09/02/24 01:07 09/02/24 01:07 09/02/24 01:07
*Pulse Oximetry
Patient hypoxic: no ( 100% on room air)
*Critical Care Note
Total Time (30-74mins, 75-104mins- exclusive of procedures): Not Applicable
ED Attending Note
-
Portions of this chart may have been created with voice recognition software.� Occasional wrong word or��sound alike� substitutions may have occurred due to the inherent limitations of voice recognition software.
Discharge Plan
Departure
Patient Disposition: Home (Routine Discharge)
Date of Disposition: 09/02/24
Time of Disposition: 02:32
Patient with high blood pressure during this ER visit?: Yes
Condition: Good
Discharge Problem:
Accidental acetaminophen overdose
Instructions: Accidental Overdose (DC), BLOOD PRESSURE
Prescriptions:
No Action
fexofenadine [Lona Allergy] 180 MG tablet
180 mg PO DAILY
fluticasone propionate 1 SPRAY spray,suspension
2 spray intranasal DAILY
magnesium 200 mg Tablet
200 mg PO DAILY
cinnamon bark 500 MG capsule
1,000 mg PO BID
guaifenesin [Mucinex] 1,200 MG tablet extended release 12hr
1,200 mg PO BIDPRN PRN (Reason: cold/cough)
omeprazole 20 MG tablet,delayed release (DR/EC)
20 mg PO DAILY
loperamide [Imodium A-D] 2 mg Tablet
2 mg PO Q4HPRN PRN (Reason: loose stool)
amlodipine 5 mg Tablet
5 mg PO DAILY
lactase [Lactaid] 3,000 unit Tablet
3,000 unit PO MEALS PRN (Reason: lactose)
wheat dextrin 1 gram Tablet
1 g PO DAILYPRN PRN (Reason: constipation)
allopurinol 200 mg Tablet
200 mg PO DAILY
Praluent Pen 150 mg/mL Pen Injector
150 mg SC Q14D
benzonatate 200 mg capsule
200 mg PO Q8HPRN PRN (Reason: cough)
amlodipine 2.5 mg tablet
2.5 mg PO DAILY
diphenhydramine HCl [Benadryl] 25 mg Capsule
25 mg PO HSPRN PRN (Reason: sleep)
lisinopril 40 mg tablet
40 mg PO DAILY
metformin 500 mg tablet extended release 24 hr
1,000 mg PO DAILY
hydrochlorothiazide 12.5 mg tablet
12.5 mg PO DAILY
cholecalciferol (vitamin D3) 50 mcg (2,000 unit) Tablet
50 mcg PO DAILY
Tart Chiu Extract 1,000 mg Capsule
1,000 mg PO QPM
oseltamivir 30 mg Capsule
30 mg PO BID 4 Days Qty: 8 0RF
Referrals:
UNKNOWN - PT DOES,NOT KNOW [Family Provider]
Interventions
Interventions:
*Risk Screen - Suicide Last Done: 09/02/24 01:07
ED- Cardiac Assessment Last Done: 09/02/24 02:23
ED- Neurological Assessment Last Done: 09/02/24 02:23
ED-Psychological Assessment Last Done: 09/02/24 02:23
ED- Pulmonary Assessment Last Done: 09/02/24 02:23
Discharge Date and Time
Print Language: ARABIC
[2024-09-02 02:43] VITALS: BP 136/70
== END 2024-09-02 02:45 | disposition home or self-care (01) ==
LOC: EMR 01:02
PROVIDERS: EMERGENCY PHYSICIAN Student in an Organized Health Care Education/Training Program
DX: T39.1X1A Poisoning by 4-Aminophenol derivatives, accidental (unintentional), initial encounter (principal); I10 Essential (primary) hypertension; R03.0 Elevated blood-pressure reading, without diagnosis of hypertension
CPT/HCPCS: 99282

== ENCOUNTER → 2024-09-30 09:26 | Outpatient (REF) | payer MEDICARE, OTHER, SELFPAY | LOC: RAD 09:26 | PROVIDERS: ATTENDING PHYSICIAN Internal Medicine Hematology & Oncology; FAMILY PHYSICIAN Family Medicine | DX: Z13.820 Encounter for screening for osteoporosis (principal); E85.81 Light chain (AL) amyloidosis; C90.01 Multiple myeloma in remission; Z78.0 Asymptomatic menopausal state; M85.88 Other specified disorders of bone density and structure, other site | CPT/HCPCS: 77080 ==

== ENCOUNTER → 2024-11-08 07:33 | Outpatient (REF) | payer MEDICARE, OTHER, SELFPAY ==
[2024-11-08 08:08] LABS: Hematocrit 29.9 % (37.0-47.0); Hemoglobin 9.6 g/dL (12.0-16.0); Mean Corp Hgb Conc. 32.1 g/dL (33.0-37.0); Mean Corpuscular Volume 90.9 fL (81.0-99.0); Nucleated Red Blood Cells % 0 %; Platelet Count 276 10^3/uL (130-400); Red Cell Dist. Width 14.3 % (11.5-14.5)
[2024-11-08 08:33] LABS: Troponin I < 0.012 ng/ml
[2024-11-08 08:37] LABS: ALT (SGPT) 13 U/L (0-35); AST (SGOT) 15 U/L (14-36); Albumin 3.8 g/dl (3.5-5.0); Alkaline Phosphatase 85 U/L (38-126); Blood Urea Nitrogen 27 mg/dl (7-17); Calcium 8.9 mg/dl (8.4-10.2); Carbon Dioxide 24 mmol/L (22-30); Chloride 111 mmol/L (98-107); Glucose 147 mg/dl (70-99); Potassium 4.3 mmol/L (3.5-5.1); Sodium 142 mmol/L (135-145); Total Protein 6.3 g/dl (6.3-8.2); eGFR 37.49
[2024-11-10 23:48] LABS: 24 Hour Urine Total Volume Random mL; Urine Collection Length Random hr
[2024-11-11 02:37] LABS: Albumin 3.52 g/dL (3.75-5.01); Free Kappa Light Chains,Quant 30.27 mg/L (3.30-19.40); Free Lambda Light Chains,Quant 28.04 mg/L (5.71-26.30); Immunofixation Electrophoresis IFE Done; Kappa/Lambda Fr Light Ratio 1.08 (0.26-1.65); Total Protein-Electrophoresis 6.0 g/dL (6.3-8.2)
== END ==
LOC: REG 07:33
PROVIDERS: ATTENDING PHYSICIAN Internal Medicine Hematology & Oncology; FAMILY PHYSICIAN Family Medicine
DX: E85.81 Light chain (AL) amyloidosis (principal)
CPT/HCPCS: 36415; 80053; 82570; 82784; 83520; 83521; 83880; 84155; 84156; 84165; 84484; 85025; 86334; 86335

== ENCOUNTER → 2024-12-05 08:56 | Outpatient (REF) | payer MEDICARE, OTHER, SELFPAY ==
[2024-12-05 10:51] LABS: ALT (SGPT) 17 U/L (0-35); AST (SGOT) 18 U/L (14-36); Albumin 4.2 g/dl (3.5-5.0); Alkaline Phosphatase 84 U/L (38-126); Blood Urea Nitrogen 25 mg/dl (7-17); Calcium 9.3 mg/dl (8.4-10.2); Carbon Dioxide 28 mmol/L (22-30); Chloride 106 mmol/L (98-107); Glucose 141 mg/dl (70-99); HDL Cholesterol 51 mg/dl; Iron 50 ug/dl (37-170); LDL Cholesterol, Calculated 136 mg/dl; Magnesium 1.7 mg/dl (1.6-2.3); Potassium 4.3 mmol/L (3.5-5.1); Sodium 141 mmol/L (135-145); Total Protein 6.7 g/dl (6.3-8.2); Very Low Density Lipoprotein 38 mg/dl (0-30); eGFR 44.51
[2024-12-05 10:56] LABS: Hematocrit 30.7 % (37.0-47.0); Hemoglobin 10.0 g/dL (12.0-16.0); Mean Corp Hgb Conc. 32.6 g/dL (33.0-37.0); Mean Corpuscular Volume 91.9 fL (81.0-99.0); Nucleated Red Blood Cells % 0 %; Platelet Count 291 10^3/uL (130-400); Red Cell Dist. Width 14.1 % (11.5-14.5)
[2024-12-05 11:00] LABS: Total Iron Binding Capacity 265 ug/dl (265-497)
[2024-12-05 11:06] LABS: Vitamin D, 25-OH*** 30.6 ng/mL (30-80)
[2024-12-05 11:17] LABS: TSH 1.35 uIU/ml (0.47-4.68)
[2024-12-05 11:21] LABS: Ferritin 200.0 ng/ml (11.1-264.0)
[2024-12-05 11:52] LABS: Folate 11.1 ng/ml (2.76-20); Vitamin B12 378 pg/ml (239-931)
[2024-12-07 00:01] LABS: Transferrin 212 mg/dL (200-360)
[2024-12-08 02:12] LABS: Albumin 3.79 g/dL (3.75-5.01); Free Kappa Light Chains,Quant 28.02 mg/L (3.30-19.40); Free Lambda Light Chains,Quant 27.13 mg/L (5.71-26.30); Immunofixation Electrophoresis IFE Done; Kappa/Lambda Fr Light Ratio 1.03 (0.26-1.65); Total Protein-Electrophoresis 6.6 g/dL (6.3-8.2)
== END ==
LOC: REG 08:56
PROVIDERS: ATTENDING PHYSICIAN Internal Medicine Hematology & Oncology; FAMILY PHYSICIAN Family Medicine; OTHER PHYSICIAN Internal Medicine Cardiovascular Disease
DX: E85.81 Light chain (AL) amyloidosis (principal); E78.01 Familial hypercholesterolemia; E83.42 Hypomagnesemia; E55.9 Vitamin D deficiency, unspecified; C90.00 Multiple myeloma not having achieved remission; D52.0 Dietary folate deficiency anemia; D51.0 Vitamin B12 deficiency anemia due to intrinsic factor deficiency
CPT/HCPCS: 36415; 80053; 80061; 82306; 82570; 82607; 82728; 82746; 82784; 83521; 83540; 83550; 83735; 83880; 84155; 84156; 84165; 84443; 84466; 85025; 86334

== ENCOUNTER → 2025-01-02 09:08 | Outpatient (REF) | payer MEDICARE, OTHER, SELFPAY ==
[2025-01-02 12:11] LABS: Glycohemoglobin (HgbA1c) 6.6 % (4.0-5.6)
== END ==
LOC: REG 09:08
PROVIDERS: ATTENDING PHYSICIAN Family Medicine
DX: E11.9 Type 2 diabetes mellitus without complications (principal)
CPT/HCPCS: 36415; 83036

== ENCOUNTER → 2025-02-09 09:09 | Outpatient (REF) | payer MEDICARE, OTHER, SELFPAY ==
[2025-02-09 09:49] LABS: Hematocrit 32.1 % (37.0-47.0); Hemoglobin 10.1 g/dL (12.0-16.0); Mean Corp Hgb Conc. 31.5 g/dL (33.0-37.0); Mean Corpuscular Volume 89.4 fL (81.0-99.0); Nucleated Red Blood Cells % 0 %; Platelet Count 266 10^3/uL (130-400); Red Cell Dist. Width 15.1 % (11.5-14.5)
[2025-02-09 10:13] LABS: Troponin I < 0.012 ng/ml
[2025-02-09 13:23] LABS: ALT (SGPT) 16 U/L (0-35); AST (SGOT) 16 U/L (14-36); Albumin 3.9 g/dl (3.5-5.0); Alkaline Phosphatase 90 U/L (38-126); Blood Urea Nitrogen 29 mg/dl (7-17); Calcium 9.3 mg/dl (8.4-10.2); Carbon Dioxide 29 mmol/L (22-30); Chloride 105 mmol/L (98-107); Glucose 131 mg/dl (70-99); Potassium 4.2 mmol/L (3.5-5.1); Sodium 138 mmol/L (135-145); Total Protein 6.6 g/dl (6.3-8.2); eGFR 49.00
[2025-02-11 21:50] LABS: 24 Hour Urine Total Volume Random mL; Urine Collection Length Random hr
== END ==
LOC: REG 09:09
PROVIDERS: ATTENDING PHYSICIAN Internal Medicine Hematology & Oncology
DX: E85.81 Light chain (AL) amyloidosis (principal)
CPT/HCPCS: 36415; 80053; 82570; 82784; 83520; 83521; 83880; 84155; 84156; 84165; 84484; 85025; 86334; 86335